=== PATIENT | female | born 1955 | race Caucasian/White ===

== ENCOUNTER 2021-01-16 12:32 | Outpatient (CLI) | payer MEDICARE, OTHER ==
[2021-01-16 15:40] LABS: ALBUMIN 4.7 g/dL (3.2-5.5); BILIRUBIN,DIRECT 0.2 mg/dL (0.1-0.5); BILIRUBIN,TOTAL 1.4 mg/dL (0.2-1.0); TOTAL PROTEIN 7.8 g/dL (6.7-8.2)
== END 2021-01-16 12:33 | disposition home or self-care (01) ==
LOC: LAB.S 12:32
PROVIDERS: ATTEND Internal Medicine Pulmonary Disease
DX: J84.10 Pulmonary fibrosis, unspecified (principal); Z79.899 Other long term (current) drug therapy
CPT/HCPCS: 36415; 80076

== ENCOUNTER 2021-02-12 12:32 | Outpatient (CLI) | payer MEDICARE, OTHER ==
[2021-02-12 13:07] LABS: ALBUMIN 5.1 g/dL (3.2-5.5); BILIRUBIN,DIRECT 0.2 mg/dL (0.1-0.5); BILIRUBIN,TOTAL 1.2 mg/dL (0.2-1.0); TOTAL PROTEIN 7.8 g/dL (6.7-8.2)
== END 2021-02-12 12:33 | disposition home or self-care (01) ==
LOC: LAB 12:32
PROVIDERS: ATTEND Internal Medicine Pulmonary Disease
DX: J84.10 Pulmonary fibrosis, unspecified (principal); Z79.899 Other long term (current) drug therapy
CPT/HCPCS: 36415; 80076

== ENCOUNTER 2021-03-12 12:29 | Outpatient (CLI) | payer MEDICARE, OTHER ==
[2021-03-12 12:59] LABS: ALBUMIN 4.8 g/dL (3.2-5.5); BILIRUBIN,DIRECT 0.2 mg/dL (0.1-0.5); BILIRUBIN,TOTAL 1.1 mg/dL (0.2-1.0); TOTAL PROTEIN 7.8 g/dL (6.7-8.2)
== END 2021-03-12 12:30 | disposition home or self-care (01) ==
LOC: LAB 12:29
DX: J84.10 Pulmonary fibrosis, unspecified (principal); Z79.899 Other long term (current) drug therapy
CPT/HCPCS: 36415; 80076

== ENCOUNTER 2021-06-05 13:18 | Outpatient (CLI) | payer MEDICARE, OTHER ==
[2021-06-05 20:26] LABS: BILIRUBIN,DIRECT 0.2 mg/dL (0.1-0.5); BILIRUBIN,TOTAL 0.9 mg/dL (0.2-1.0); TOTAL PROTEIN 7.9 g/dL (6.7-8.2)
== END 2021-06-05 13:19 | disposition home or self-care (01) ==
LOC: LAB.S 13:18
PROVIDERS: ATTEND Internal Medicine Pulmonary Disease
DX: J84.10 Pulmonary fibrosis, unspecified (principal); Z79.899 Other long term (current) drug therapy
CPT/HCPCS: 36415; 80076

== ENCOUNTER 2021-09-06 13:15 | Outpatient (CLI) | payer MEDICARE, OTHER ==
[2021-09-06 13:59] LABS: ALBUMIN 4.7 g/dL (3.2-5.5); BILIRUBIN,DIRECT 0.2 mg/dL (0.1-0.5); TOTAL PROTEIN 7.5 g/dL (6.7-8.2)
== END 2021-09-06 13:16 | disposition home or self-care (01) ==
LOC: LAB 13:15
PROVIDERS: ATTEND Internal Medicine Pulmonary Disease
DX: J84.10 Pulmonary fibrosis, unspecified (principal); Z79.899 Other long term (current) drug therapy
CPT/HCPCS: 36415; 80076

== ENCOUNTER 2022-01-31 12:24 | Outpatient (CLI) | payer MEDICARE, OTHER ==
[2022-01-31 12:43] LABS: CALCIUM 10.1 mg/dL (8.5-10.3); CREATININE 0.9 mg/dL (0.4-1.0); POTASSIUM 3.6 mmol/L (3.5-5.0)
== END 2022-01-31 12:25 | disposition home or self-care (01) ==
LOC: LAB 12:24
PROVIDERS: ATTEND Internal Medicine
DX: E87.6 Hypokalemia (principal)
CPT/HCPCS: 36415; 80048

== ENCOUNTER 2023-01-13 11:23 | Outpatient (CLI) | payer MEDICARE, OTHER ==
[2023-01-13 14:52] LABS: BUN - BLOOD UREA NITROGEN 16 mg/dL (6-20); CALCIUM 9.7 mg/dL (8.5-10.3); CARBON DIOXIDE - CO2 28 mmol/L (21-32); CHLORIDE 97 mmol/L (101-111); CHOLESTEROL 192 mg/dL; CREATININE 0.8 mg/dL (0.4-1.0); GFR - MDRD 72 (>89); GLUCOSE 78 mg/dL (70-100); HDL CHOLESTEROL 63 mg/dL; LDL CHOLESTEROL,CALCULATED 103 mg/dL; LDL/HDL RATIO 1.6 (<4.4); POTASSIUM 3.7 mmol/L (3.5-5.0); SODIUM 137 mmol/L (135-145); TRIGLYCERIDES 128 mg/dL; VLDL CHOLESTEROL 26 mg/dL
[2023-01-13 15:01] LABS: THYROID STIMULATING HORMONE 2.01 uIU/mL (0.34-5.60)
== END 2023-01-13 11:24 | disposition home or self-care (01) ==
LOC: LAB.S 11:23
PROVIDERS: ATTEND Internal Medicine
DX: I10 Essential (primary) hypertension (principal)
CPT/HCPCS: 36415; 80048; 80061; 83721; 84443

== ENCOUNTER 2023-12-26 19:05 | Emergency (ER) | payer MEDICARE, OTHER ==
[2023-12-26 19:40] LABS: BASOPHILS % (AUTO) 0.1 %; EOSINOPHILS # (AUTO) 0.1 10^3/uL (0.0-0.7); EOSINOPHILS % (AUTO) 0.9 %; HCT - HEMATOCRIT 43.1 % (37.0-47.0); HGB - HEMOGLOBIN 13.8 g/dL (12.0-16.0); LYMPHOCYTES % (AUTO) 11.1 %; MEAN CORPUSCULAR HEMOGLOBIN 31.4 pg (27.0-31.0); MEAN PLATELET VOLUME 9.1 fL (7.9-10.8); MONOCYTES # (AUTO) 0.4 10^3/uL (0.0-1.0); NEUTROPHILS # (AUTO) 7.4 10^3/uL (1.5-6.6); NEUTROPHILS % (AUTO) 83.6 %; PLT - PLATELET COUNT 324 10^3/uL (130-450); RED CELL DISTRIBUTION WIDTH 12.9 % (12.0-15.0); WHITE BLOOD COUNT 8.9 x10^3/uL (4.8-10.8)
[2023-12-26 19:53] LABS: ALBUMIN 4.3 g/dL (3.2-5.5); ALBUMIN/GLOBULIN RATIO 1.5 (1.0-2.2); BILIRUBIN,TOTAL 0.5 mg/dL (0.2-1.0); CALCIUM 10.3 mg/dL (8.5-10.3); CREATININE 0.9 mg/dL (0.6-1.3); POTASSIUM 3.1 mmol/L (3.5-4.5); TOTAL PROTEIN 7.1 g/dL (6.4-8.9)
[2023-12-26 20:16] LABS: ETOH - ETHANOL < 10.0 mg/dL
[2023-12-26] MEDS: POTASSIUM CHLOR 10 MEQ/100 ML 10 MEQ/100 ML BAG IV STA (20:23)
[2023-12-26] MEDS: POTASSIUM CHLORIDE 20 MEQ/15 ML UDC PO STA (20:23)
--- NOTE | 2023-12-26 21:05 | ED Physician Documentation ---
History of Present Illness - Stated complaint Stated Complaint: LOW BP - Chief complaint Chief Complaint: Cardiac - History obtained from History obtained from: Patient, Family (spouse) - Additonal information Additional information: 68yF with pmh ILD on lung transplant list (home o2 at nighttime) p/w concern that her home pulse oximeter showed o2 sat in high 80s. patient also may have had low HR or BP reading at that time. her relative who is RN is visiting and prompted her to come to ED. patient states she feels well and has no concerns at this time. PD PAST MEDICAL HISTORY - Past Medical History Past Medical History: Yes Cardiovascular: Hypertension, High cholesterol Respiratory: Other Endocrine/Autoimmune: HyPOthyroidism Other Past Medical History: interstitial lung disease. antisynthetase syndrome - Past Surgical History Past Surgical History: Yes - Allergies Allergies/Adverse Reactions: Allergies Allergy/AdvReac Type Severity Reaction Status Date / Time Sulfa (Sulfonamide AdvReac Rash Verified 12/26/23 19:23 Antibiotics) - Social History Does the pt smoke?: No Smoking Status: Former smoker Does the pt drink ETOH?: Yes ETOH Use: Wine Does the pt have substance abuse?: No - Immunizations Immunizations are current?: Yes - POLST Patient has POLST: No PD ED PE NORMAL - Vitals Vital signs reviewed: Yes - General General: Alert and oriented X 3, No acute distress, Well developed/nourished - HEENT HEENT: Atraumatic, PERRL, EOMI, Other (mild chemosis L eye) - Neck Neck: Supple, no meningeal sign - Cardiac Cardiac: RRR - Respiratory Respiratory: No respiratory distress, Clear bilaterally - Abdomen Abdomen: Non tender, Non distended - Derm Derm: Normal color, Warm and dry Results - Vitals Vitals: Vital Signs - 24 hr 12/26/23 12/26/23 19:16 20:35 Temperature 37.1 C Heart Rate 47 L 82 Respiratory 18 14 Rate Blood Pressure 143/89 H 143/92 H O2 Saturation 97 Oxygen O2 Source Room air - EKG (time done) 1928 EKG releavant findings:: EKG personally interpreted by author of this note. Relevant findings are: Rate: Rate (enter#) (84) Rhythm: NSR Intervals: Normal [place] QRS: Normal Ischemia: Normal ST segments Other comments: Other comments (PVC) 2003 EKG releavant findings:: EKG personally interpreted by author of this note. Relevant findings are: Rate: Rate (enter#) (74) Rhythm: NSR Intervals: Normal [place] QRS: Normal Ischemia: Normal ST segments Other comments: Other comments (PVCs) - Labs Labs: Laboratory Tests 12/26/23 12/26/23 12/26/23 19:30 19:30 19:30 WBC 8.9 RBC 4.40 Hgb 13.8 Hct 43.1 MCV 98.0 MCH 31.4 H MCHC 32.0 RDW 12.9 Plt Count 324 MPV 9.1 Neut # (Auto) 7.4 H Lymph # (Auto) 1.0 L [place] # (Auto) 0.4 Eos # (Auto) 0.1 Baso # (Auto) 0.0 Absolute Nucleated RBC 0.00 Nucleated RBC % 0.0 Sodium 137 Potassium 3.1 L Chloride 99 L Carbon Dioxide 28 Anion Gap 10.0 BUN 17 Creatinine 0.9 Estimated GFR (MDRD) 62 L Glucose 107 H Calcium 10.3 Total Bilirubin 0.5 AST 17 ALT 19 Alkaline Phosphatase 75 Total Protein 7.1 Albumin 4.3 Globulin 2.8 Albumin/Globulin Ratio 1.5 Lipase 48 TSH 0.70 Ethyl Alcohol < 10.0 PD Medical Decision Making - ED course ED course: 68yF p/w concern for low o2 reading at home. Patient well appearing here with normal vital signs aside from mild asymptomatic bradycardia on arrival. 2 EKGs performed showing nsr with pvcs. Her cardiac monitoring is benign and she is 99% RA o2 with no complaints. she is aware of mild hypokalemia and pcp is monitoring. return precautions given. plan to f/u with pcp. Departure - Departure Disposition: Home, Self Care Clinical Impression: Chemosis of left conjunctiva, PVCs (premature ventricular contractions) Condition: Stable Comments: You were seen in the emergency department for medical evaluation. Your oxygen level looked good while here. Your labwork looks good. Your potassium was 3.1 which is mildly low. You can have this rechecked with your primary care provider. Your eye condition is called chemosis and can have many causes, most of which are benign. If you experience vision changes, pain or irritation then please follow up with an eye doctor or go to walk in clinic. Please return to the emergency department if you have any new or worsening symptoms or other concerns. Forms: PCP List
[2023-12-26 21:31] VITALS: BP 134/78; O2SAT 99
== END 2023-12-26 21:29 | disposition home or self-care (01) ==
LOC: ED 19:05
DX: H11.422 Conjunctival edema, left eye (principal); I49.3 Ventricular premature depolarization; J84.9 Interstitial pulmonary disease, unspecified; Z99.81 Dependence on supplemental oxygen; I10 Essential (primary) hypertension; E78.00 Pure hypercholesterolemia, unspecified; E03.9 Hypothyroidism, unspecified
CPT/HCPCS: 36415; 80053; 83690; 84443; 85025; 93005; 96365; 99284; A9270; G0480; 82077

== ENCOUNTER 2024-03-03 07:00 | Outpatient (CLI) | payer MEDICARE, OTHER ==
--- NOTE | 2024-03-03 17:43 | XRAY Report ---
PROCEDURE: Chest 2V INDICATIONS: HYPOXIA/ACUTE COUGH TECHNIQUE: 2 views of the chest were acquired. COMPARISON: None. FINDINGS: Surgical changes and devices: None. Lungs and pleura: Bibasilar reticulation and groundglass, left greater than right. Mediastinum: Mediastinal contours appear normal. Heart size is normal. Bones and chest wall: No suspicious bony lesions. Overlying soft tissues appear unremarkable. IMPRESSION: Bibasilar reticulation and groundglass, left greater than right. Differential includes atypical pneum onia, acute exacerbation interstitial lung disease, less likely aspiration. Reviewed by: Kiet Bennett MD on 03/03/2024 5:42 PM PDT Approved by: Kiet Bennett MD on 03/03/2024 5:42 PM PDT Station ID: [id number]
== END 2024-03-03 23:59 | disposition home or self-care (01) ==
LOC: DI.S 07:00
PROVIDERS: ATTEND Registered Nurse
DX: R09.02 Hypoxemia (principal); R05.1 Acute cough; R92.8 Other abnormal and inconclusive findings on diagnostic imaging of breast

== ENCOUNTER 2024-04-04 12:50 | Outpatient (CLI) | payer MEDICARE, OTHER ==
[2024-04-04 20:32] LABS: THYROID STIMULATING HORMONE 2.36 uIU/mL (0.34-5.60)
== END 2024-04-04 12:51 | disposition home or self-care (01) ==
LOC: LAB.S 12:50
PROVIDERS: ATTEND Internal Medicine
DX: E89.0 Postprocedural hypothyroidism (principal)
CPT/HCPCS: 36415; 84443